=== PATIENT | male | born 1995 | race Caucasian/White ===

== ENCOUNTER 2022-06-28 12:29 | Emergency (ER) | payer BC, SELFPAY ==
[2022-06-28 12:45] VITALS: BP 176/126; PULSE 83; RESP 16; TEMP 36.6; O2SAT 99; BMI 34.4
--- NOTE | 2022-06-28 12:49 | PC.NURSE ---
Laceration noted to left thumb. Wound placed in hibiclens soak. Active bleeding noted. Dressing replaced. VO Lido without epi for repair.
[2022-06-28 13:00] VITALS: BP 139/90; PULSE 89; RESP 18; O2SAT 98
[2022-06-28 13:30] VITALS: BP 146/99; PULSE 79; RESP 18; O2SAT 100
--- NOTE | 2022-06-28 13:43 | HMH.EDGENADL ---
Discharge Plan Disposition Patient Disposition: Home, Self-Care Condition: Good Chief Complaint: Wound/Laceration Referrals Follow up/Referrals: Provider,Referral, MD [Primary Care Provider] - See instructions Clinical Impressions Clinical Impression: Laceration Instructions Patient Instructions: DI for Laceration Repair Discharge ED Provider: Fidel Nguyễn General Adult HPI General Chief complaint: Wound/Laceration Stated complaint: AO 5/7 Laceration to R thumb Time Seen by Provider: 06/28/22 12:36 Mode of Arrival: Ambulatory Source of Information: Patient Limitations: No Limitations Description of Symptoms (Recalled from ER Triage Doc. 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 Dressing in place. History of Present Illness HPI narrative: 27yo M presents to the ER secondary to a laceration on his right thumb. Patient was using a mandolin slicer. Uncertain last tetanus shot. Related Data Allergies Allergy/AdvReac Type Severity Reaction Status Date / Time No Known Allergies Allergy Verified 06/28/22 13:47 [facility] Disclaimer: The information contained in this section may have been updated after the patient was seen, as this information can be updated by other users. Social History Smoking Status: Never smoker alcohol intake: never current occupational status: other Travel in the last 8 weeks: None ROS Obtained: Yes Systems reviewed as appropriate & no additional complaints except as documented Physical Exam General General appearance: alert and in no apparent distress Head Head exam: atraumatic Eye Eye exam: Present normal appearance Neck Neck exam: Present trachea midline Chest Chest inspection: Present symmetric chest wall rise Respiratory Respiratory exam: Absent respiratory distress Cardiovascular Cardiovascular exam: Present regular rate Neurological Exam Neurological exam: Present alert, oriented X3 and CN II-XII intact Skin Skin exam: Present other (R thumb laceration) Medical Decision Making Medical Records Medical records reviewed: Yes I reviewed the patient's medical records. Trae Inquiry Pt receiving controlled substance: No Vital Signs: 06/28/22 12:45 06/28/22 13:00 Temperature 97.9 F Temperature Source Oral Pulse Rate 89 Pulse Rate [Right] 83 Respiratory Rate 16 18 Blood Pressure 139/90 Blood Pressure [Right Arm] 176/126 H Blood Pressure Mean 115 Blood Pressure Mean [Right Arm] 142 02 Sat by Pulse Oximetry 99 98 Oxygen Delivery Method Room Air Room Air Medical Decision Narrative: 27yo M evaluated for laceration to his right thumb. No acute distress. See procedure note for details of repair. Patient tolerated well. Updated on tetanus. Appropriate and stable for discharge home. Counseled that if he continues oozing after lidocaine wears off, may need to return for cauterization. PCP follow-up in 1 to 2 days. Procedures Laceration Laceration 1: Site: thumb Side (If applicable): right Size (cm): 3 Description: linear Depth: involves subcutaneous layer Local Anesthetic: lidocaine 1% Amount of anesthesia used (mL): 5 Pre-repair: irrigated extensively Skin layer closed with: nylon Size (cm): 3-0 Number of sutures: 3 Technique: simple, interrupted Size: 3-0 Critical Care Time Critical Care Time Critical Care Time: No Attestation: On 06/28/22, the high probability of a clinically significant, sudden or life threatening deterioration of the following system(s) required my full and direct attention, intervention and personal management. The time I documented below is in addition to time spent performing reported procedures but includes the following listed in this critical care notation.
[2022-06-28 14:00] VITALS: BP 146/99; PULSE 78; RESP 18; TEMP 36.6; O2SAT 98
--- NOTE | 2022-06-28 14:02 | PC.NURSE ---
Neosporin applied to laceration. (3) sutures in place. Dry dressing applied. Pt tolerated well.
== END 2022-06-28 14:02 | disposition home or self-care (01) ==
PROVIDERS: Emergency Provider Family Medicine
DX: S61.011A Laceration without foreign body of right thumb without damage to nail, initial encounter (principal); W26.8XXA Contact with other sharp object(s), not elsewhere classified, initial encounter; Y93.G1 Activity, food preparation and clean up
CPT/HCPCS: 12042; 90715; 96372; 99282; 99283

== ENCOUNTER 2022-07-05 11:17 | Emergency (ER) | payer BC, SELFPAY ==
[2022-07-05 11:30] VITALS: BP 116/77; PULSE 78; RESP 18; TEMP 36.6; O2SAT 98; BMI 36.0
[2022-07-05 11:35] VITALS: BP 116/77; PULSE 78; RESP 18; TEMP 36.6; O2SAT 98
== END 2022-07-05 11:37 | disposition home or self-care (01) ==
LOC: UTC 11:18
PROVIDERS: Emergency Provider Nurse Practitioner
DX: S61.011A Laceration without foreign body of right thumb without damage to nail, initial encounter (principal); Z48.02 Encounter for removal of sutures